=== PATIENT | female | born 1950 | race African-American/Black ===

== ENCOUNTER 2020-07-05 10:23 | Inpatient (IN) ==
[2020-07-05] MEDS ORDERED: FUROSEMIDE 100 MG/10 ML VIAL IV STA (11:53)
[2020-07-05 11:54] LABS: Basophils % 0.2 % (0.0-0.8); Hematocrit 40.7 VOL% (35.7-47.0); Hemoglobin 12.8 GM/DL (12.0-16.0); Immature Granulocytes % 0.4 %; Immature Granulocytes Absolute 0.02 #; Lymphocytes # 0.7 10*3/uL (1.4-4.0); Lymphocytes % 12.8 % (21.3-54.2); Mean Corpuscular HGB Conc 31.4 GM/DL (32-36); Mean Corpuscular Volume 88.3 FL (87-102); Mean Platelet Volume 11.3 FL (9.6-12.0); Monocytes % 7.4 % (1.7-12.7); Neutrophils % 79.2 % (38.7-73.9); Platelet Count 174 T/CUMM (130-400); Red Blood Count 4.61 MC/CUMM (3.8-5.5); Red Cell Distribution Width 15.2 % (9.3-17.3); White Blood Count 5.2 T/CUMM (4-12)
[2020-07-05 12:05] LABS: INR 1.3; PT Patient Result 13.5 SECS (9.8-11.9); Partial Thromboplastin Time 39.6 SECS (23.9-33.8)
[2020-07-05 12:29] LABS: Albumin 2.2 G/DL (3.4-5.0); Bilirubin,Total 0.5 MG/DL (0.2-1.0); Calcium 9.3 MG/DL (8.5-10.1); Osmolality,Calculated 299.8 MOS/KG (273-304); Total Protein 6.4 G/DL (6.4-8.3)
[2020-07-05] MEDS ORDERED: ACETAMINOPHEN 325 MG TABLET PO PRN (13:20)
[2020-07-05] MEDS ORDERED: ONDANSETRON 4 MG/2 ML VIAL IV PRN (13:20)
[2020-07-05] MEDS ORDERED: ZINC GLUCONATE 50 MG TABLET PO SCH (13:30)
[2020-07-05 14:22] LABS: Ferritin 354.6 ng/ml (8-252)
[2020-07-05] MEDS ORDERED: ENOXAPARIN 40 MG/0.4 ML SYRINGE SUBCUT SCH (16:00)
[2020-07-05] MEDS: FUROSEMIDE 40 MG/4 ML VIAL IV SCH (16:40)
[2020-07-05] MEDS: ASCORBIC ACID 500 MG TABLET PO SCH ×3 (16:40→21:21)
[2020-07-05] MEDS: carvediloL 3.125 MG TABLET PO SCH ×2 (16:40→20:47)
[2020-07-05] MEDS: CHOLECALCIFEROL 1,000 UNIT TABLET PO SCH (16:40)
[2020-07-05] MEDS ORDERED: REMDESIVIR 100 MG in SODIUM CHLORIDE 0.9% 100 ML IV SCH (17:30)
[2020-07-05] MEDS ORDERED: ALUMINUM/MAGNES/SIMETH MAX STR 30 ML UDCUP PO PRN (17:43)
[2020-07-05] MEDS: FAMOTIDINE 20 MG TABLET PO SCH (20:46)
[2020-07-05] MEDS: APIXABAN 5 MG TABLET PO SCH (20:47)
[2020-07-06 07:02] LABS: Calcium 9.1 MG/DL (8.5-10.1); Osmolality,Calculated 304.7 MOS/KG (273-304)
[2020-07-06 07:32] LABS: Basophils % 0.2 % (0.0-0.8); Eosinophils % 0.2 % (0.00-10.9); Hematocrit 41.3 VOL% (35.7-47.0); Hemoglobin 12.2 GM/DL (12.0-16.0); Immature Granulocytes % 0.6 %; Immature Granulocytes Absolute 0.03 #; Lymphocytes # 0.4 10*3/uL (1.4-4.0); Lymphocytes % 8.4 % (21.3-54.2); Mean Corpuscular HGB Conc 29.5 GM/DL (32-36); Mean Corpuscular Volume 93.4 FL (87-102); Mean Platelet Volume 11.8 FL (9.6-12.0); Monocytes % 4.6 % (1.7-12.7); Platelet Count 143 T/CUMM (130-400); Red Blood Count 4.42 MC/CUMM (3.8-5.5); Red Cell Distribution Width 15.3 % (9.3-17.3); White Blood Count 5.2 T/CUMM (4-12)
[2020-07-06] MEDS ORDERED: PANTOPRAZOLE 40 MG TABLET PO SCH (09:00)
[2020-07-06] MEDS: carvediloL 3.125 MG TABLET PO SCH (09:53)
[2020-07-06] MEDS: FUROSEMIDE 40 MG/4 ML VIAL IV SCH (09:53)
[2020-07-06] MEDS: APIXABAN 5 MG TABLET PO SCH (09:53)
[2020-07-06] MEDS: ASCORBIC ACID 500 MG TABLET PO SCH (09:53)
[2020-07-06] MEDS: FAMOTIDINE 20 MG TABLET PO SCH (09:53)
[2020-07-06] MEDS: CHOLECALCIFEROL 1,000 UNIT TABLET PO SCH (09:53)
[2020-07-06] MEDS ORDERED: APIXABAN 2.5 MG TABLET PO SCH (10:30)
[2020-07-06 12:20] VITALS: BP 99/59
[2020-07-06] MEDS ORDERED: cefTRIAXone 1,000 MG in SYRINGE 1 EACH IV SCH (15:00)
== END 2020-07-06 15:26 | disposition hospice, home (50) | DRG 291 ==
LOC: EDBD → EDUNIT# → N.ED 10:23 → N.EDINP 13:20 → N.2E 15:04
PROVIDERS: ADMIT Family Medicine; ATTEND Family Medicine